=== PATIENT | male | born 1945 | race African-American/Black ===

== ENCOUNTER 2018-08-07 05:56 | Day surgery (SDC) | payer OTHER ==
[~2018-08-07] VITALS: Ht 170.2 cm; Wt 116.1 kg
[2018-08-07] MEDS ORDERED: BUPIVACAINE-MPF 0.25% 30 ML VIAL INJ ONE (08:17)
[2018-08-07] MEDS ORDERED: LIDOCAINE 1% 500 MG/50 ML VIAL ONE (08:37)
[2018-08-07] MEDS ORDERED: MORPHINE SULFATE 2 MG/ML SYR IVP PRN (09:45)
[2018-08-07] MEDS ORDERED: MORPHINE SULFATE 4 MG/ML SYR IV PRN (09:45)
[2018-08-07] MEDS ORDERED: HYDROmorphone 1 MG/ML AMP IVP PRN (09:45)
== END 2018-08-07 10:45 | disposition home or self-care (01) ==
LOC: MDS 05:56 → MMU 05:57 → MDS 10:45
PROVIDERS: ATTEND Surgery
DX: D17.0 Benign lipomatous neoplasm of skin and subcutaneous tissue of head, face and neck (principal); E11.9 Type 2 diabetes mellitus without complications; M19.90 Unspecified osteoarthritis, unspecified site; E66.9 Obesity, unspecified; Z68.41 Body mass index [BMI] 40.0-44.9, adult; Z98.890 Other specified postprocedural states
CPT/HCPCS: 21552; 71045; 88304; 93005; J0690; J2001; J3490; J7030; J7060